=== PATIENT | female | born 1990 | race African-American/Black ===

== ENCOUNTER 2020-01-03 17:33 | Emergency (ER) | payer OTHER ==
[~2020-01-03] VITALS: Ht 162.6 cm; Wt 82.6 kg
[~2020-01-03 17:33] MED LIST: ACYCLOVIR200 MG PO; METRONIDAZOLE500 MG PO
[2020-01-03] MEDS ORDERED: AZITHROMYCIN 250 MG TAB PO ONE (18:00)
[2020-01-03] MEDS ORDERED: METRONIDAZOLE 500 MG TAB PO ONE (18:00)
[2020-01-03] MEDS ORDERED: CEFTRIAXONE SOD 250 MG VIAL IM ONE (18:00)
--- NOTE | 2020-01-03 18:01 | Emergency Department Note ---
History of Present Illnes History of Present Illness History of Present Illness This is a 29 year old female c/o vaginal discharge with burning since 1am this morning. Pt states she had sex with a new partner unprotected the night before. . Onset (how long ago): hour(s) (12) Location: vaginal Quality: buring with discharge Radiation: Reports non-radiation Severity: mild Onset quality: sudden Duration (how long): hour(s) (12) Timing of current episode: constant Progression: worsening Chronicity: new Context: Reports other (recent unprotected intercourse with a new partner) Relieving factors: none Exacerbating factors: none Associated symptoms: Reports denies other symptoms Treatments prior to arrival: none Past Medical/Family History Physician Review I have reviewed the patient's past medical and family history. Any updates have been documented here. Past Medical History Other Medical History: herpes Other Surgery: Social History Smoking Cessation: Never Smoker Alcohol Use: None Any Illegal Drug Use: No Family History Family history of heart diseas: No Other Last Tetanus: ood Review of Systems Review of Systems Constitutional: Reports no symptoms EENTM: Reports no symptoms Cardiovascular: Reports no symptoms Respiratory: Reports no symptoms Gastrointestinal: Reports no symptoms Genitourinary: Reports as per HPI Musculoskeletal: Reports no symptoms Integumentary: Reports no symptoms Neurological: Reports no symptoms Psychological: Reports no symptoms Endocrine: Reports no symptoms Hematological/Lymphatic: Reports no symptoms Physical Exam Related Data Allergies: Coded Allergies: Penicillins (Verified Allergy, Intermediate, hives, 01/03/20) Uncoded Allergies: PCN (Allergy, Unknown, 12/07/16) Triage Vital Signs Vital Signs Date Time Temp Pulse Resp B/P (MAP) Pulse Ox O2 Delivery O2 Flow Rate FiO2 01/03/20 17:39 98.4 115 22 139/99 100 Vital signs reviewed: Yes Physical Exam CONSTITUTIONAL Constitutional: Present well-developed, Present well-nourished, Present other (mildly anxious) HENT HENT: Present normocephalic, Present atraumatic, Present oropharynx clear/moist, Present nose normal HENT L/R: Present left ext ear normal, Present right ext ear normal EYES Eyes: Reports PERRL, Reports conjunctivae normal NECK Neck: Present ROM normal PULMONARY Pulmonary: Present effort normal, Present breath sounds normal CARDIOVASCULAR Cardiovascular: Present regular rhythm, Present heart sounds normal, Present capillary refill normal, Present tachycardia (105) GASTROINTESTINAL Abdominal: Present soft, Present nontender, Present bowel sounds normal GENITOURINARY Genitourinary: Present exam deferred SKIN Skin: Present warm, Present dry MUSCULOSKELETAL Musculoskeletal: Present ROM normal NEUROLOGICAL Neurological: Present alert, Present oriented x 3, Present no gross motor or sensory deficits PSYCHOLOGICAL Psychological: Present mood/affect normal, Present judgement normal Results Laboratory Laboratory Laboratory Tests Test 01/03/20 17:50 Urine Color Yellow (YELLOW) Urine Clarity Clear (CLEAR) Urine pH 5.5 (5 - 7) Urine Specific [place] 1.025 (1.010-1.025) Urine Protein Negative (NEGATIVE) Urine Glucose (UA) Negative (NEGATIVE) Urine Ketones Negative (NEGATIVE) Urine Blood Negative (NEGATIVE) Urine Nitrite Negative (NEGATIVE) Urine Bilirubin Negative (NEGATIVE) Urine Urobilinogen 0.2 mg/dL (0.2 - 1) Urine Leukocyte Esterase Trace (NEGATIVE) Urine RBC 0-5 /HPF (0-5) Urine WBC 6-10 /HPF (0-5) Urine Epithelial Cells Moderate /LPF (NONE) Urine Bacteria Rare /HPF (NONE) Urine Mucus Few (RARE) Urine Test Negative (NEGATIVE) Laboratory Tests Test 01/03/20 17:50 Lab results reviewed: Yes Assessment & Plan Medical Decision Making MDM pt with vaginal discharge and burning after unprotected intercourse ua ordered to eval for pregnance, uti rocephin 250 mg im ordered zithromax 1 gram po ordered flagyl 2 grams po ordered zofran odt 4mg po ordered Assessment & Plan Final Impression: (1) STD (female) Depart Disposition: HOME, SELF-CARE Last Vital Signs Date Time Temp Pulse Resp B/P (MAP) Pulse Ox O2 Delivery O2 Flow Rate FiO2 01/03/20 17:39 98.4 115 22 139/99 100 Home Meds Reported Medications Metronidazole (METRONIDAZOLE) 500 Mg Tablet, 500 MG PO BID, TAB 12/07/16 Acyclovir (ACYCLOVIR) 200 Mg Capsule, 200 MG PO DAILY, #30 CAP 12/07/16 Medications in the ED Ceftriaxone Sodium 250 mg ONCE ONCE IM ; Start 01/03/20 at 18:00; Stop 01/03/20 at 18:01; Status UNV Azithromycin 1,000 mg ONCE ONCE PO ; Start 01/03/20 at 18:00; Stop 01/03/20 at 18:01; Status UNV Metronidazole 2,000 mg ONCE ONCE PO ; Start 01/03/20 at 18:00; Stop 01/03/20 at 18:01; Status UNV SHRUTHI THOMAS MD Jan 03, 2020 18:01
[2020-01-03 18:05] LABS: BILIRUBIN,URINE NEGATIVE (NEGATIVE); CLARITY,URINE CLEAR (CLEAR); COLOR,URINE YELLOW (YELLOW); KETONES,URINE NEGATIVE (NEGATIVE); LEUKOCYTE ESTERASE ,URINE TRACE (NEGATIVE); NITRITE,URINE NEGATIVE (NEGATIVE); PREGNANCY TEST, URINE NEGATIVE (NEGATIVE); PROTEIN,URINE DIPSTICK NEGATIVE (NEGATIVE); URINE UROBILINOGEN 0.2 mg/dL (0.2 - 1)
[2020-01-03 18:09] LABS: BACTERIA,URINE RARE /HPF; EPITHELIAL CELLS,URINE MODERATE /LPF; MUCUS,URINE FEW (RARE); RBC,URINE 0-5 /HPF (0-5)
[2020-01-03] MEDS ORDERED: ONDANSETRON HCL 4 MG ORAL DISINTEGRATING TAB PO ONE (18:15)
== END 2020-01-03 18:52 | disposition home or self-care (01) ==
LOC: ER 18:00
DX: A64 Unspecified sexually transmitted disease (principal)
CPT/HCPCS: 81001; 81025; 99282; J0696; Q0162